=== PATIENT | male | born 1980 | race Two or more races ===

== ENCOUNTER → 2018-07-11 10:34 | Outpatient (CLI) | payer BC, SELFPAY ==
--- NOTE | 2018-07-11 10:59 | EKG12_ITS ---
Test Reason : PRE-OP Blood Pressure : / mmHG Vent. Rate : 076 BPM Atrial Rate : 076 BPM P-R Int : 146 ms QRS Dur : 080 ms QT Int : 344 ms P-R-T Axes : 015 025 029 degrees QTc Int : 387 ms Normal sinus rhythm Normal ECG Confirmed by KIMMIE VALENCIA, NILESH ([id number]), city editor SARA BARON ([id number]) on 07/12/2018 2:46:21 PM Referred By: Vanessa Perez Confirmed By:NILESH BURKS MD
[2018-07-11 12:12] LABS: Hematocrit 42.5 % (40-54); Hemoglobin 14.5 g/dl (13.0-16.5); Mean Corp Hgb Conc 34.1 g/gl (32-36); Mean Corpuscular Hgb 27.1 pg (27.0-32.0); Mean Corpuscular Volume 79.3 fL (80-94); Mean Platelet Vol. 10.9 fl (6.2-12.0); Platelet Count 316 K/mm3 (150-450); RBC Distribution Width CV 12.6 % (11.6-14.6); RBC Distribution Width SD 36.2 fl (35.1-43.9); Red Blood Count 5.36 M/mm3 (4.6-6.2)
[2018-07-11 12:22] LABS: Scan Indicated on CBC? Y/N NO
[2018-07-11 12:30] LABS: Anion Gap 7 (5-15); BUN 5 mg/dL (7-18); BUN/Creat Ratio 6.1 RATIO (10-20); Calcium,Total 9.3 mg/dL (8.5-10.1); Chloride 102 mmol/L (98-107); Creatinine, Serum 0.82 mg/dL (0.70-1.30); EST Glomerular Filtration Rate 112 mL/min (>60); Est Glom Filt Rate - Afr Amer 135 mL/min (>60); Glucose 190 mg/dL (74-106); Potassium 4.1 mmol/L (3.5-5.1); Sodium Level 138 mmol/L (136-145)
== END ==
PROVIDERS: Family Provider Family Medicine; PCP Family Medicine; Referring Provider Nurse Practitioner Adult Health; Visit Provider Nurse Practitioner Adult Health
DX: Z01.818 Encounter for other preprocedural examination (principal)
CPT/HCPCS: 36415; 80048; 85027; 93005

== ENCOUNTER → 2018-07-15 17:10 | Outpatient (CLI) | payer BC, SELFPAY ==
--- NOTE | 2018-07-15 09:50 | MISC_PTH ---
PATIENT: RADHA BARRETT LOC: [facility]#:[id number] AGE/SX: 45/M ROOM: RE07/15/[address]: Dr. 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 AM:gaby 07/19/18 COMMENT Smooth muscle is not represented in the biopsy. The biopsy margins are positive for carcinoma. Normal squamous mucosa is also present in the sections examined. Clinical correlation is suggested. Case has been reviewed in consultation with Dr. Jean who concurs with the above diagnosis. ALEKSANDRA:MIKE MICROSCOPIC DESCRIPTION Slides are reviewed. GROSS DESCRIPTION Received in fixative is one container labeled with the patient's name and designated biopsy from glans of penis. The specimen consists of a piece of james-white skin measuring 1.6 x 1 cm and up to 0.4 cm in thickness. The specimen is inked, serially sectioned and submitted entirely in one cassette. / MIKE:gaby 07/18/18 TC:0 CPT: 21535 ADDENDUM ADDENDUM ADDENDUM ADDENDUM ADDENDUM ADDENDUM ADDENDUM ADDENDUM ADDENDUM ADDENDUM 08/11/2018 09:52 ADDENDUM 08/11/2018 09:52 ADDENDUM 08/11/2018 09:52 ADDENDUM 08/11/2018 09:52 ADDENDUM 08/11/2018 09:52 This addendum is added to incorporate an outside pathology consultation report. The case was examined at [facility] (#[id number]) and the following diagnosis was rendered. Penis, glans, biopsy: Invasive well differentiated squamous cell carcinoma, usual type. Please see complete above mentioned consultation report in EMR
== END ==
PROVIDERS: Family Provider Family Medicine; PCP Family Medicine; Referring Provider Urology; Visit Provider Urology
DX: N48.9 Disorder of penis, unspecified (principal); R30.0 Dysuria
CPT/HCPCS: 88305